=== PATIENT | female | born 1950 | race Hispanic/Latino ===

== ENCOUNTER 2017-05-03 06:17 | Day surgery (SDC) | payer MEDICARE ==
[2017-04-20 13:15] VITALS: BMI 25.0
[2017-05-03] MEDS ORDERED: Lidocaine 1% Inj (20ml) ONE ×2 (07:19→07:38)
[2017-05-03] MEDS ORDERED: Propofol 10 mg/ml Inj (20 ML) ONE (07:37)
[2017-05-03] MEDS ORDERED: Midazolam 2 MG/2 ML VIAL ONE (07:37)
[2017-05-03] MEDS ORDERED: ePHEDrine 50 mg/ml Inj ONE (07:47)
[2017-05-03] MEDS: Bupivacaine 0.5% Inj(30mL) ONE ×2 (08:00→11:35)
[2017-05-03] MEDS ORDERED: Sevoflurane - Inhalation Anesthetic Liq (250 ml) ONE (08:33)
[2017-05-03] MEDS ORDERED: HYDROmorphone 0.5 mg/0.5 ml ISec IVP PRN ×2 (10:00→12:00)
[2017-05-03] MEDS ORDERED: Lactated Ringer's 1,000 ML IV SCH (10:00)
[2017-05-03] MEDS ORDERED: Oxycodone/Acetaminophen 5/325 mg Tab PO PRN ×2 (12:06)
--- NOTE | 2017-05-03 12:11 | PCM.SURG1 ---
Surgeon's Initial Post Op Note - Surgeon's Notes Surgeon: Dr. Raad Wheatley, DPM [employer]: Dr. Olman Power, PGY-2; Dr. Lorena Tapia, PGY-1 Type of Anesthesia: General Endo, Local Anesthesia Administered By: Dr. Chan Pre-Operative Diagnosis: 1) Left foot metatarsal primus adductus. 2) Left hallux abcucto-valgus. 3) Left 2nd digit hammertoe deformity. 4) Left 3rd and 4th digit flexure contracture. 5) Left laterally splayed 5th metatarsal/ Tailor 's Bunion deformity. Operative Findings: See dictation. M: Synthes BME 4 point 30mm staple; AVIS BME 2 point 18mm staple, Snthes 2.4 canulated partially theaded screw. 0.062 inch k-wire, Orthosorb pin. Post-Operative Diagnosis: 1) Left foot metatarsal primus adductus. 2) Left hallux abcucto-valgus. 3) Left 2nd digit hammertoe deformity. 4) Left 3rd and 4th digit flexure contracture. 5) Left laterally splayed 5th metatarsal/ Tailor 's Bunion deformity. Operation Performed: 1) Left foot 1st metatarsal-cuneiform arthrodesis. 2) Left foot Silver bunionectomy. 3) Left 2nd digit proximal-interphalangeal arthrodesis. 4) Left 3rd and 4th digit flexor tendon tenotomy. 5) Left 5th metatarsal osteotomy with screw fixation. Specimen/Specimens Removed: Left foot bone and soft tissue Estimated Blood Loss: EBL {In ML}: 25 Blood Products Given: N/A Drains Used: No Drains Post-Op Condition: Good Date of Surgery/Procedure: 05/03/17 Time of Surgery/Procedure: 11:55
--- NOTE | 2017-05-03 13:07 | RAD ---
PROCEDURE: Left Foot Radiographs. HISTORY: s/p left foot surgery COMPARISON: None. FINDINGS: BONES: Normal. No fractureThere is surgical fixation at the TMT 1 articulation. A pin extends through the phalanges of the 2nd digit. There is an osteotomy of the 5th metatarsal head with a screw at fixing the fragments. Bony detail is obscured by overlying fiberglass splint material. Patient is status post bunionectomy. Postsurgical irregularity of the overlying soft tissues are seen adjacent to the 1st metatarsal head. . JOINTS: As above SOFT TISSUES: As above OTHER FINDINGS: None. IMPRESSION: Bunionectomy. Thickening of 2nd digit phalanges. Osteotomy 5th metatarsal head. Fixation TMT 1 articulation.
[2017-05-03 13:13] VITALS: PULSE 85; RESP 20
[2017-05-03 13:18] VITALS: TEMP 98
--- NOTE | 2017-05-03 13:27 | RAD ---
PROCEDURE: Fluoroscopy up to 1 hour HISTORY: K-WIRE / HARDWARE INSERTION COMPARISON: TECHNIQUE: Fluoroscopy up to 1 hour. 20.3 seconds of fluoro time. Three views were submitted FINDINGS: A longitudinally oriented wire is seen through the 2nd toe through the distal mid and proximal phalanx. A wire is seen through the neck of the 5th metatarsal with placement of a screw. There are no complicating factors IMPRESSION: As above
[2017-05-03 13:58] VITALS: BP 103/83; O2SAT 95
--- NOTE | 2017-05-07 08:49 | OP ---
PROCEDURE DATE: 05/03/2017 PREOPERATIVE DIAGNOSES: 1. Left foot first metatarsus primus adductus deformity with hallux abductovalgus deformity. 2. Left second digit hammertoe deformity. 3. Left third and fourth digit hammertoe deformities. 4. Left foot splayed fifth metatarsal. POSTOPERATIVE DIAGNOSES: 1. Left foot first metatarsus primus adductus deformity with hallux abductovalgus deformity. 2. Left second digit hammertoe deformity. 3. Left third and fourth digit hammertoe deformities. 4. Left foot splayed fifth metatarsal. PROCEDURE PERFORMED: 1. Left foot first metatarsal cuneiform arthrodesis with distal proximal phalanx osteotomy. 2. Left second digit proximal interphalangeal joint arthrodesis. 3. Left foot third and fourth digit extensor digitorum longus flexor tenotomies. 4. Left fifth metatarsal osteotomy with screw fixation. PRIMARY SURGEON: Raad Wheatley DPM TYPE OF ANESTHESIA: General LMA. ANESTHESIA ADMINISTERED BY: Dr. Abad. SPECIMENS: Left foot bone and soft tissue. INDICATIONS: The patient is a 66-year-old female with the above-stated diagnoses. She has exhausted all conservative treatment options provided by Dr. Wheatley to this point and is now in need of surgical intervention. The patient signed the surgical consent after careful explanation of risks, benefits, complications and potential alternatives to the proposed surgical procedures. No guarantees were either given nor implied. All patient's questions were answered to her satisfaction. PREPARATION: The patient's n.p.o. status was confirmed prior to bringing the patient to the operating room. The patient was brought into the operating room and placed on the operating room table in a supine position. A well-padded pneumatic tourniquet was applied to the mid-thigh level of the left lower extremity and set at 350 mmHg to be inflated once the procedures began. Once general anesthesia was confirmed to have been achieved, an ipsilateral bump was placed under the patient's left buttocks, inferior to the pad of the operating room table. Once in adequate position, the patient's left lower extremity was prepped and draped in the usual sterile manner. Foot and ankle were exsanguinated, tourniquet was inflated, and the procedures began. PROCEDURE 1: Left first metatarsal cuneiform arthrodesis. The patient received a total of 10 mL of 0.5% Marcaine plain in a local block-type fashion to the left ankle. Attention was then directed to the medial aspect of the first metatarsal cuneiform where an approximately 10 cm incision was made using #15 blade superior to the course of the tibialis anterior insertion along the dorsal medial surface of the foot extending from the medial cuneiform navicular joint to the first metatarsophalangeal joint. Care was taken to identify, avoid or retract all vital neurovascular structures, all bleeders were cauterized and ligated as needed. All tendinous structures were retracted to avoid damage. This incision was extended down to subcutaneous tissue layers using a combination of sharp and blunt dissection. At this time, incision was extended down to the level of metatarsal navicular joint and joint was evaluated and found to be stable. Attention was redirected to the metatarsocuneiform joint where periosteal and capsular incision was made medial in the dorsomedial surface of the joint. Periosteum and capsular structures were identified dorsally and plantarly along the length of incision using a combination of periosteal elevators. Periosteal structures were then retracted dorsally and plantarly. At this time, a Synthes small joint distractor was adhered and K-wires were pinned in the metaphyseal bone regions of the adjacent bones of the metatarsocuneiform joint and distracted. Once active distraction was appreciated and the far side of the joint complex could be visualized, a sagittal saw was introduced to the operative field where arthroplasty of the first metatarsocuneiform joint was performed with the osteotomy being perpendicular to weightbearing surface of the first metatarsal. Approximately, a 2 mm laterally based wedge of bone was excised. . Secondary arthroplasty osteotomy was performed at the head of the medial cuneiform and approximately 2 mm laterally based wedge of bone was excised. These bone specimens was passed from the operative field to be sent for pathological evaluation. At this time, surgical site was then flushed with copious amounts of sterile saline. It was noted that all cartilagenous tissue was excised from the osteotomy cut. Subchondral drilling through the subchondral bone plate was performed using 0.045 inch K-wire across the osteotomy sites. At this time, reduction was performed using manual manipulation. Range of motion at the first metatarsophalangeal joint was noted to be 80% improved upon with metatarsus primus adductus deformity being largely resolved. Metatarsal cuneiform reduction was then maintained with a 0.062 inch K-wire oriented from distal medial to proximal lateral stabilizing the medial cuneiform first metatarsal arthrodesis site. At this time, reduction was evaluated to evaluate any potential step-offs. Plantar cortical surface was found to be adequate and well stabilized and inferior margins of joint line flushed. Excess bony step-offs from the dorsomedial cuneiform was excised using sagittal saw and passed from the operative field. All rough edges were smoothed down with bone rasp. At this time, with temporary fixation in place inferior to the midline of the long axis of the first ray, a Synthes BME Elite Nitinol Staple guide was introduced. Two of the fixation guide holes were drilled in the medial cuneiform, 2 were drilled in the distal arthrodesis site at the base of the first metatarsal. At this time, the BME Elite Nitinol 30 mm Staple was introduced across the osteotomy site and tamped into place to be flushed with the medial aspect of the bony surfaces. No gross step-off was noted. At this time, a BME Titan 18 mm staple guide was introduced and placed to the dorsomedial aspect of the arthrodesis site along the long axis of the first ray. Post holes were pre-drilled through staple guide posts. Then a BME Titan Nitinol 18 mm staple was placed and secured and tamped into place, being fully flushed with dorsomedial bony surfaces. At this time metatarsocuneiform osteotomy site was then stressed and found to be rigidly fixated. Temporary fixation K-wire was then removed. Osteotomy site was then once again stressed and found to be fully secure. Surgical site was then flushed with copious amounts of sterile saline. At this time, attention was directed to the medial bony eminence of the distal first metatarsal head where utilizing sagittal saw, bony prominence was excised and passed from the operative field. No varus deformity was noted upon excision of deformity. Mild hallux abductovalgus deformity remained at this time. Soft tissue dissection was performed over the dorsal aspect of the metatarsophalangeal joint where using a #15 blade, a 2 cm linear longitudinal incision was made lateral and parallel to the extensor hallucis longus tendon using#15 blade with care being taken to identify, avoid, and retract all vital neurovascular structures. All bleeders were cauterized and ligated as needed. This incision was extended down into the interspace using blunt dissection. At this time, the fibular sesamoid first metatarsal head apparatus was appreciated. A longitudinal incision was made superior to the fibular sesamoid resecting suspensory ligaments. At this time, adductor tendon was palpated and then a J-stroke swipe was performed to release the adductor tendon attachments from the base of the proximal phalanx and the fibular sesamoid. This improved remaining 20% of metatarsus primus adductus metatarsophalangeal joint level bunion deformity. Surgical site was then flushed with copious amounts of sterile saline. At this time, upon evaluation of forefoot, it was noted that mild hallux interphalangeus deformity was appreciated at the level of the hallux interphalangeus joint. Intraoperative decision was made to perform a phalangeal osteotomy in the distal aspect of the proximal hallux. Incision was extended to the hallux interphalangeus joint using #15 blade, care was taken to identify, avoid or retract all vital neurovascular structures. All bleeders were cauterized and ligated as needed. Periosteal incision was performed and periosteal structures were retracted medially and laterally, thus exposing the distal two-thirds of the proximal hallux. At this time, a medially based wedge osteotomy was performed in the distal one-third of the proximal hallux with care being taken to leave lateral bony cortex intact, which was achieved. At this time, bony wedge was excised and then a reduction was performed and found to resolve hallux interphalangeus. However, upon inspecting bony purchase available in the distal segment of the osteotomy, it was noted that a metallic internal fixation device from staple to screw to potentially crack the distal capital fragment. Thus intraoperative decision was made to insert an Orthosorb pin oriented from the distal medial surface of the articular surface of the proximal hallux down the medullary shaft. This was performed in sequence and fixation held after insertion of Orthosorb pin. Surgical site was then flushed with copious amounts of sterile saline. First ray surgical reductions were found to be adequate. Periosteal structures were reapproximated using combination of 2-0 and 3-0 Vicryl. At this time, tourniquet time was noted to be 130 minutes. Tourniquet was deflated at this point. Healthy bleeding was noted as lower extremity began to reperfuse with oxygenated blood. No bleeders needed to be ligacted or cauterized. Procedures continued without tourniquet hemostasis until adequate vascular reperfusion timle elapsed. Subcutaneous tissues were reapproximated using 4-0 Vicryl, skin was reapproximated using 4-0 nylon PROCEDURE 2: Left second digit proximal interphalangeal joint arthrodesis with K-wire fixation. Attention was then directed to the dorsal aspect of the left foot second digit where a linear longitudinal incision using a #15 blade was made overlying the proximal interphalangeal joint. The incision was deepened through subcutaneous tissues with care being taken to identify, avoid and retract all vital neurovascular structures. All bleeders were cauterized and ligated as needed. At this time, a transverse tenotomy capsulotomy was performed at the level of the proximal interphalangeal joint from the second digit. The head of the proximal phalanx and base of the middle phalanx were then freed of their capsular and ligamentous structures allowing for visualization. At this time, an oscillating saw was introduced to the operative field in the head of the proximal phalanx and its articular cartilage was resected and passed from the operative field. Oscillating saw was utilized to resect the articular surface and subchondral bone of the base of the middle phalanx, which was excised and passed from the operative field. At this time, with noted absence of both adjacent bony margins of the proximal interphalangeal joint being free of their articular and subchondral bone, surgical site was then flushed with copious amounts of sterile saline. Next, a 0.062 inch K-wire was then driven from the base of the middle phalanx exiting the distal tuft of the second digit and the K-wire was then retrograded proximally into the remaining aspect of the proximal phalanx. Correction of deformity was assessed at this time and noted to be excellent. Surgical site was then flushed with copious amounts of sterile saline. Tendon was reapproximated using 4-0 Vicryl, skin was reapproximated using 4-0 nylon in a simple suture type fashion. PROCEDURE 3: Left foot third and fourth digit flexor tenotomies. Note that the following procedures were performed in the following steps in sequence with no deviations between the respective digits. Attention was then brought to the plantar aspect of the respective digit as well towards the proximal interphalangeal joint where using a #15 blade, a 0.5 cm incision was made. This incision was extended down using sharp dissection with care being taken to retract and avoid all vital neurovascular structures. All bleeders were cauterized as needed. At this time, the flexor tendon was noted. It was sharply released using #15 blade. At this time, correction of the deformity was noted and respective digit was now seated in erect position. At this time, the surgical site was then flushed with copious amounts of sterile saline and skin was reapproximated using 4-0 nylon. PROCEDURE 4: Left foot fifth metatarsal osteotomy with screw fixation. Noted at this time, tourniquet had been deflated for 45 minutes allowing adequate time for reperfusion of the left lower extremity. The foot was re-exsanguinated and tourniquet was reinflated to 350 mmHG and left in inflated for remainder of procedure. Attention was directed to the dorsolateral surface of the fifth metatarsophalangeal joint where hyperkeratotic lesion was noted lateral to the fifth metatarsal head. A 3-cm linear longitudinal incision was made lateral and parallel to the tendon of the extensor digitorum longus tendon involving the contour of the deformity, superior to the hyperkeratotic tissue lesion using #15 blade. This incision was extended down to subcutaneous tissue layers with care being taken to identify, retract and avoid all vital neurovascular structures. All bleeders were cauterized and ligated as needed. A linear capsulotomy was performed in line of the incision. The fifth metatarsal head was freed of its capsular and periosteal attachments, thus bringing it into full operative view. Next, utilizing a sagittal saw, the lateral prominence was resected and passed from the operative field. Next, a sagittal saw was used to create a [id number] type osteotomy oriented from the dorsal distal surface of the metatarsal to the plantar proximal aspect of the distal one-third of the fifth metatarsal. Upon completion of the osteotomy, the capital fragment was distracted and shifted medially to more corrected position and held in place using a bone clamp. At this time, a 0.045 inch K-wire was directed across the osteotomy site from proximal dorsal to distal plantar. Bone clamps were then removed and it was noted that the temporary fixation K-wire held the reduction adequately. At this time, following standard AO principles and technique, a Synthes 2.4 mm x 40 mm partially threaded screw was inserted over temporary fixation K-wire and allowed for compression and stability across osteotomy site. At this time, K-wire was then removed and screw purchase and stability at osteotomy site was found to be excellent. Attention was then directed to the remaining lateral bone shelf, which was then resected utilizing the sagittal saw. All rough edges were then smoothed down with a hand rasp. Surgical site was then flushed with copious amounts of sterile saline. Periosteal and capsular structures were reapproximated using combination of 3-0 Vicryl, subcuticular tissue was reapproximated using 4-0 Vicryl, skin was reapproximated using 4-0 nylon in a running simple suture type fashion. The patient received a total of 20 mL of 0.5% Marcaine plain in a local block-type fashion to the left foot. Foot was cleansed, surgical sites were then dressed with Betadine-soaked 4 x 4 gauze, Vicky, Kerlix, Webril. The patient was placed in posterior splint. POSTOPERATIVE CONDITION: The patient tolerated the anesthesia and procedure well and was escorted to the recovery room with vital signs stable and neurovascular status intact to the left foot. The patient had no complaints or complications. The patient will follow up with Dr. Wheatley's office on an outpatient basis. Olman Power DPM Raad Wheatley DPM RAEGAN
== END 2017-05-03 14:15 | disposition home or self-care (01) ==
LOC: SDS 06:17
PROVIDERS: ATTEND Podiatrist
DX: M20.12 Hallux valgus (acquired), left foot (principal); M20.42 Other hammer toe(s) (acquired), left foot
CPT/HCPCS: 28230; 28285; 28297; 28308; 73630; 76000; 88304; 88311; J0690; J1170; J1885; J2250; J2405; J2704; J2765; J3010; J7120